=== PATIENT | male | born 1995 | race Caucasian/White ===

== ENCOUNTER 2025-04-16 09:58 | Emergency (ER) | payer BC, SELFPAY ==
--- NOTE | ~2025-04-16 | US_ITS ---
US abdomen limited Indication: RIGHT UPPER QUADRANT PAIN Comparison: None Technique: Steele-scale and color Doppler images were obtained. Findings: LIVER: Liver measures 15.5 cm. No liver lesions are identified. . GALLBLADDER/BILIARY: Unremarkable.No cholelithiais, wall thickening or pericholecystic fluid. No biliary dilatation. CBD 4.9 mm. [place] sign negative. PANCREAS: Pancreas limited by bowel gas. Right Kidney: Right kidney 10.3 x 5.4 x 5.6 cm. Impression: No acute abnormality. Reviewed, dictated and finalized at location P. H OPERATOR Impression: No acute abnormality.
--- NOTE | ~2025-04-16 | CT_ITS ---
CT abdomen pelvis w con Clinical History: ruq . Comparison: None Technique: Axial images lung bases to symphysis pubis IV contrast information not listed in PACS Coronal, sagittal reformats CT images acquired with automatic exposure control for dose reduction DLP: 817 mGy-cm Findings: Lung bases: Clear. Visualized heart and pericardium: Unremarkable. Liver: Unremarkable. Gallbladder: Unremarkable. Spleen: Unremarkable. Pancreas: Unremarkable. Adrenal glands: Unremarkable. Kidneys: Right kidney- No hydronephrosis. No renal stones. Left kidney- No hydronephrosis. No renal stones. Distal esophagus/stomach: Small hiatal hernia. Small bowel loops: Normal caliber and wall thickness. Colon: Normal caliber and wall thickness. Normal appendix, right upper quadrant. Nodes: No enlarged nodes. Peritoneum: No ascites. No free air. Small inflammatory change around falciform ligament. Urinary bladder: Unremarkable. Prostate: Unremarkable. Trace pelvic free fluid. Bones: No acute bony abnormality. Soft tissues: Unremarkable. Aorta: No aneurysm or dissection. IVC: Unremarkable. Main portal vein/SMV/splenic vein: Patent. IMPRESSION: 1. Mild mesenteric fatty inflammation within right upper quadrant along liver falciform ligament of unclear etiology or significance. 2. Otherwise no acute abnormality. Reviewed, dictated and finalized at location R. R AND SEWER SYSTEMS SUPERVISOR
--- NOTE | ~2025-04-16 | XR_ITS ---
EXAMINATION: XR chest 1V portable COMPARISON: No comparisons available. HISTORY: RIGHT UPPER QUADRANT PAIN FINDINGS: Mild pulmonary venous congestion. No pneumothorax. Mild cardiomegaly. Mediastinal and hilar contours are within normal limits. Bony thorax no acute abnormality. Miscellaneous: None Impression: Mild CHF Reviewed, dictated and finalized at location P. RE D Impression: Mild CHF
[2025-04-16 10:01] VITALS: BP 124/93; PULSE 78; RESP 16; TEMP 36.9; O2SAT 99
--- NOTE | 2025-04-16 10:23 | ED.ABDPAIN ---
HPI - Abdominal Pain General Chief Complaint: Abdominal Pain Stated Complaint: abdominal pain Time Seen by Provider: 04/16/25 10:17 Source: patient Mode of arrival: ambulatory Limitations: no limitations History of Present Illness HPI narrative: 29 YEARS OLD WHITE MALE CAME TO THE ED BY PRIVATE CAR FROM HOME COMPLAINING OF RIGHT UPPER QUADRANT PAIN FOR THE LAST 3 DAYS, SHARP, WORSE WITH BREATHING DEEPLY AND TURNING OVER IN BED. PATIENT DENIES ANY FEVER, CHILLS, NAUSEA, VOMITING, DIARRHEA, CONSTIPATION. PATIENT JOB IS PAINTING CARS DENIES ANY NEW PHYSICAL ACTIVITY THAN USUAL. PATIENT IS HEALTHY OTHERWISE, DOES NOT SMOKE OR USE DRUGS, DRINK OCCASIONALLY. Related Data Allergies Allergy/AdvReac Type Severity Reaction Status Date / Time No Known Allergies Allergy Verified 04/16/25 10:00 Review of Systems Review of Systems: All systems reviewed & are unremarkable except as noted in HPI and below Exam Narrative: GENERAL APPEARANCE: WELL-DEVELOPED, WELL-NOURISHED SKIN: NORMAL COLOR HEAD: NORMOCEPHALIC, NONTRAUMATIC EYES: CLEAR CONJUNCTIVA ENT: OROPHARYNX NORMAL, EARS NORMAL, NOSE NORMAL NECK: SUPPLE, NONTENDER CHEST AND RESPIRATORY: AIRWAY PATENT, NO RESPIRATORY DISTRESS, NO ACCESSORY MUSCLE USE HEART: REGULAR RATE/RHYTHM ABDOMEN: SOFT, RIGHT UPPER QUADRANT TENDERNESS, GUARDING, NO REBOUND, QUITE BOWEL SOUNDS VASCULAR: NORMAL PERIPHERAL PULSES, NORMAL CAPILLARY REFILL. MUSCULOSKELETAL: NORMAL RANGE OF MOTION, NONTENDER BACK NEUROLOGIC: ALERT AND ORIENTED ?3, MENTAL HEALTH COORDINATOR IS NORMAL TESTED, NO GROSS MOTOR DEFICIT Course Vital Signs Vital signs: Vital Signs Temperature 36.9 C 04/16/25 10:01 Pulse Rate 78 04/16/25 10:01 Respiratory Rate 16 04/16/25 10:01 Blood Pressure 124/93 H 04/16/25 10:01 Pulse Oximetry 99 04/16/25 10:01 Oxygen Delivery Room Air 04/16/25 10:01 Temperature 36.9 C 04/16/25 10:01 Pulse Rate 69 04/16/25 11:43 Respiratory Rate 17 04/16/25 11:43 Blood Pressure 119/75 04/16/25 11:43 Pulse Oximetry 100 04/16/25 11:43 Oxygen Delivery Room Air 04/16/25 10:01 [facility] Narrative Medical decision making narrative: PATIENT CAME WITH RIGHT UPPER QUADRANT PAIN FOR THE LAST 3 DAYS VITAL SIGNS ARE STABLE PHYSICAL EXAMINATION SHOWING MODERATE TENDERNESS RIGHT UPPER QUADRANT, POSITIVE TEIXEIRA SIGN DIFFERENTIAL DIAGNOSIS INCLUDE CHOLECYSTITIS, LIVER DISEASE, PANCREATITIS, APPENDICITIS, RECEIVED OUR COLITIS, DIVERTICULITIS CONSTIPATION OR URINARY TRACT INFECTION BLOOD WORKUP TODAY INCLUDES CBC, CMP, LIPASE SHOWED WBC 11.4, total bilirubin 2.0, AST 59, otherwise within normal limit CT ABDOMEN AND PELVIS WITH IV CONTRAST SHOWED finding consistent with mesenteric panniculitis. Gallbladder ultrasound showed no significant abnormality Diagnosis mesenteric panniculitis, which is a self-limited disease, straight could be a good medication at this time to reduce the strength of inflammation. Discharged on prednisone 40 mg once a day for 5 days The pt was discharged to home.the pt,s condition upon discharge was fair,education was provided to the pt in reference to the final impression,discharge study results,treatment,prognosis and need for follow up . Differential Diagnosis Differential Diagnosis: As above Lab Data MDM Lab Attestation statement: I personally reviewed the patient's lab results. 04/16/25 10:32 04/16/25 10:32 Labs: Lab Results 04/16/25 Range/Units 10:32 WBC 11.4 H (4.5-10.0) K/mm3 RBC 4.50 L (4.6-6.20) M/mm3 Hgb 14.2 (14.0-18.0) g/dL Hct 41.1 L (42.0-52.0) % MCV 91.3 (80-100) fl MCH 31.6 (26-34) pg MCHC 34.5 (32-36) g/dl RDW 12.2 (11.5-14.5) % Plt Count 237 (150-375) k/mm3 MPV 8.8 (7.4-10.4) fl Immature Gran % (Auto) 0.4 (0-0.5) % Neut % (Auto) 80.9 H (45.5-73.1) % Lymph % (Auto) 10.7 L (18.3-44.2) % [place]pherson % (Auto) 7.0 (2.6-8.5) % Eos % (Auto) 0.8 (0-4.4) % Baso % (Auto) 0.2 (0.2-1.2) % Lymph # (Auto) 1.22 (0.9-3.2) K/mm3 [place]son # (Auto) 0.8 H (0.1-0.6) K/mm3 Eos # (Auto) 0.1 (0-0.3) K/mm3 Baso # (Auto) 0.0 (0.0-0.1) K/mm3 Abs Immat Gran (auto) 0.04 H (0.00-0.031) K/mm3 Absolute Neuts (auto) 9.3 H (1.3-6.7) K/mm3 Absolute Nucleated RBC 0.000 (0.0-0.012) K/mm3 Nucleated RBC % 0.0 (0.0-0.2) % Sodium 139 (137-145) mmol/L Potassium 4.1 (3.4-5.0) mmol/L Chloride 106 (98-107) mmol/L Carbon Dioxide 27 (22-30) mmol/L Anion Gap 6 (4-12) mmol/L BUN 18 (9-20) mg/dL Creatinine 1.20 (0.7-1.3) mg/dL Estim Creat Clear Calc 92 ml/min Estimated GFR > 60 (59 - ) Glucose 92 (65-110) mg/dL Calcium 9.2 (8.4-10.2) mg/dL Total Bilirubin 2.0 H (0.2-1.3) mg/dL AST 37 (17-59) U/L ALT 59 H (6-50) U/L Alkaline Phosphatase 99 (38-126) U/L Total Protein 8.2 (6.3-8.2) g/dL Albumin 4.5 (3.5-5.1) g/dL Lipase 51 (23-300) U/L Urine Color Yellow (Yellow) Urine Appearance Clear (Clear) Urine pH 6.0 (5.0-9.0) Ur Specific [place] 1.032 (1.001-1.035) Urine Protein 2+ H (Negative) mg/dL Urine Glucose (UA) Negative (Negative) mg/dL Urine Ketones Trace H (Negative) mg/dL Ur Blood (Man) Negative (Negative) Urine Nitrate Negative (Negative) Urine Bilirubin Negative (Negative) Urine Urobilinogen 1.0 (<2.0) mg/dL Leukocyte Esterase Rfl Trace H (Negative) EMANUEL/UL Urine RBC 0-2 (0-2) /hpf Urine WBC 6-10 H (0-3) /hpf Ur Squamous Epith Cells None seen (Few) /hpf Urine Bacteria None seen /hpf Urine Casts 0-2 Imaging Data Radiologist's impression: ITS Impressions Abdomen/Pelvis CT 04/16/25 11:30 IMPRESSION: 1. Mild mesenteric fatty inflammation within right upper quadrant along liver falciform ligament of unclear etiology or significance. 2. Otherwise no acute abnormality. Chest X-Ray 04/16/25 14:57 Impression: Mild CHF Abdomen Ultrasound 04/16/25 15:34 Impression: No acute abnormality. Critical Care Time Critical Care Time Critical Care Time: Yes Initial evaluation, discuss w/ involved parties, attempting to gather old records: N/A Documenting medical record: N/A Review of results (EKG's, labs, imaging): 10 minutes Serial repeat bedside evaluation: 10 minutes Discussing case with multiple memebers of the care team and consultants: N/A Total Critical Care Time: 20 Discharge Plan Discharge Clinical Impression: Mesenteric panniculitis Patient Disposition: Home Condition: Stable Instructions: Abdominal Pain (ED) Additional Instructions: RETURN IF SYMPTOMS ARE WORSENING , CALL YOUR FAMILY PHYSICIAN FOR APPOINTMENT, TAKE TYLENOL, IBUPROFEN NEEDED FOR ACHES AND PAIN, CONTINUE HOME MEDICATIONS. Patient Language: Stateless Prescriptions: New prednisone 20 mg tablet 40 mg PO DAILY 5 Days Qty: 10 0RF Follow-up/Referrals: Howard Ramsey MD [Physician, General Surgery] - 04/19/25 PHYSICIAN,INSTRUMENT LENS INSPECTOR [Primary Care Provider, Internal Medicine]
[2025-04-16] MEDS: SODIUM CHLORIDE 0.9% IV 1,000 ML 999 ML IV CONT (10:32)
[2025-04-16 10:38] LABS: Hematocrit 41.1 % (42.0-52.0); Hemoglobin 14.2 g/dL (14.0-18.0); Immature Granulocyte Percent A 0.4 % (0-0.5); Lymphocytes Absolute Auto 1.22 K/mm3 (0.9-3.2); Mean Corpuscular HGB Conc 34.5 g/dl (32-36); Mean Corpuscular Hemoglobin 31.6 pg (26-34); Mean Corpuscular Volume 91.3 fl (80-100); Nucleated Red Blood Cells Absolute Auto 0.000 K/mm3 (0.0-0.012); Nucleated Red Blood Cells Perc 0.0 % (0.0-0.2); Platelet Count Result 237 k/mm3 (150-375); Red Blood Count 4.50 M/mm3 (4.6-6.20); White Blood Count 11.4 K/mm3 (4.5-10.0)
[2025-04-16 10:41] LABS: Add Urine Microscopic? YES; Appearance Urine Clear (Clear); Glucose Urine UA Negative (Negative); Leukocyte Esterase Ur Trace LEU/UL (Negative); Nitrate Urine Negative (Negative); Non Pathogenic Casts 0-2; Specific Grav Ur 1.032 (1.001-1.035)
--- OUTSIDE RECORDS SUMMARY | 2025-04-16 10:48 | XMS_ITS | Clinical Summary ---
Author Organization [facility] Address [address] [place] [address] Care Team Providers Care High Speed Printer Operator Name Role Phone Unavailable Primary Care Provider Unavailabl e Source Comments [facility],non-owned Affiliates and Associated Physician Practices is amultiple site organization consisting of ambulatory clinics and hospital sitesin [place], [place], [place] and [place]. This disclosure is being madepursuant to the Care Everywhere program and may not contain all information available regarding this patient. Last updated 18.[facility] Allergies No known active allergies Medications * Be aware that medications may not be up to date on this document. Alwaysverify current medications with the patient. No known medications Active Problems Problem Noted Date Diagnosed Date Right groin pain 10/10/2009 Social History Tobacco Use Types Packs/Day Years Used Date Smoking Tobacco: Never Smokeless Tobacco: Former Sex and Gender Information Value Date Recorded Sex Assigned at Not on file Legal Sex Male 9:49 AM CDT Gender Identity Not on file Sexual Orientation Not on file Last Filed Vital Signs Vital Sign Reading Time Taken Comments Blood Pressure 128/86 07/23/2019 6:15 PM CDT Pulse 110 07/23/2019 6:15 PM CDT Temperature 36.9 C (98.5 F) 07/23/2019 6:15 PM CDT Respiratory Rate 16 07/23/2019 6:15 PM CDT Oxygen Saturation 97% 02/05/2019 12:01 PM CDT Inhaled Oxygen Concentration - - Weight 93 kg (205 lb) 02/05/2019 12:01 PM CDT Height 175.3 cm (5' 9) 02/05/2019 12:01 PM CDT Body Mass Index 30.27 02/05/2019 12:01 PM CDT Plan of Treatment Health Maintenance Due Date Last Done Comments HIV SCREENING 2008 HEPATITIS C SCREENING 09/08/2011 DTAP/TDAP/TD VACCINES (1 - Tdap) 2012 HEPATITIS B VACCINE (1 of 3 - 19+ 3-dose series) 2012 HPV VACCINE (1 - 3-dose SCDM series) 2020 DEPRESSION SCREENING 05/12/2024 COVID-19 VACCINE (1 - 2024-2 6 season) 2025 INFLUENZA VACCINE (#1) 2025 ZOSTER VACCINE (1 of 2) 09/13/2043 HIB VACCINE Aged Out No longer eligi ble based on patient's age to complete this topic MENINGOCOCCAL (Group B) VACC INE SHARED DECISION-MAKING Aged Out No longer eligibl e based on patient's age to complete this topic MENINGOCOCCAL GROUPS A/C/Y/W VACCINE Aged Out No longer eligible b ased on patient's age to complete this topic PNEUMOCOCCAL VACCINE Aged Out No long er eligible based on patient's age to complete this topic Insurance [facility]
[2025-04-16 10:57] LABS: Alanine Aminotransferase 59 U/L (6-50); Albumin Level 4.5 g/dL (3.5-5.1); Alkaline Phosphatase 99 U/L (38-126); Anion Gap 6 mmol/L (4-12); Aspartate Amino Transferase 37 U/L (17-59); Bilirubin,Total 2.0 mg/dL (0.2-1.3); Blood Urea Nitrogen 18 mg/dL (9-20); Calcium 9.2 mg/dL (8.4-10.2); Carbon Dioxide 27 mmol/L (22-30); Chloride 106 mmol/L (98-107); Estimated CRCL calculation 92 ml/min; Estimated Glomerular Filt Rate > 60; Glucose 92 mg/dL (65-110); Lipase 51 U/L (23-300); Potassium 4.1 mmol/L (3.4-5.0); Sodium 139 mmol/L (137-145); Total Protein 8.2 g/dL (6.3-8.2)
[2025-04-16 11:43] VITALS: BP 119/75; PULSE 69; RESP 17; O2SAT 100
[2025-04-16] MEDS: ONDANSETRON INJ 4 MG/2 ML VIAL IV PUSH (14:50)
[2025-04-16] MEDS: HYDROmorphone HCL INJ (*CRX) 1 MG/ML SYR 0.5 MG IV PUSH (14:50)
== END 2025-04-16 15:58 | disposition home or self-care (01) ==
PROVIDERS: Emergency Provider Emergency Medicine
DX: K65.4 Sclerosing mesenteritis (principal)
CPT/HCPCS: 36415; 71045; 74177; 76705; 80053; 81001; 83690; 85025; 87086; 96361; 96374; 96375; 99284; J1171; J2405; J7030; Q9967